=== PATIENT | male | born 1975 | race Caucasian/White ===

== ENCOUNTER 2019-01-18 20:29 | Emergency (ER) | payer OTHER ==
[~2019-01-18] VITALS: Ht 180.3 cm; Wt 95.3 kg
[2019-01-18] MEDS ORDERED: EPINEPHrine HCL 1 MG/1 ML AMP IM ONE (23:00)
[2019-01-18] MEDS ORDERED: methylPREDNISolone SOD SUCC 125 MG/2 ML VL IM ONE (23:00)
[2019-01-18] MEDS ORDERED: diphenhdrAMINE HCL 25 MG CAP PO ONE (23:00)
[2019-01-18 23:35] VITALS: BP 151/87
== END 2019-01-18 23:40 | disposition home or self-care (01) ==
LOC: ER 20:32 → EEVIPCON 20:32 → ER 23:40
DX: T78.40XA Allergy, unspecified, initial encounter (principal); L50.0 Allergic urticaria; X58.XXXA Exposure to other specified factors, initial encounter
CPT/HCPCS: 96372; 99283; J0171; J2930